=== PATIENT | female | born 1995 ===

== ENCOUNTER 2017-12-03 10:22 | Emergency (ER) | payer BC ==
[2017-12-03 10:34] VITALS: BP 105/64
--- NOTE | 2017-12-03 11:13 | UC ---
Shay Meza Julia, scribed for Adolph Wooten MD on 12/03/17 at 1032 . Throat Pain/Nasal Mynor HPI - HPI Summary HPI Summary: A 21 year old F presents to [facility] with a chief complaint of a sore throat for the past five days. Patient reports painful swallowing, body aches, and fever. Denies difficulty swallowing. Throat pain is 4/10 in severity, upon triage. - History of Current Complaint Stated Complaint: SORE THROAT, CHILLS Time Seen by Provider: 12/03/17 10:29 Hx Obtained From: Patient Onset/Duration: Lasting Days Cough: None Associated Signs & Symptoms: Positive: Fever, Other - body aches, sore throat, pain with swallowing - Allergies/Home Medications Allergies/Adverse Reactions: Allergies Allergy/AdvReac Type Severity Reaction Status Date / Time No Known Allergies Allergy Verified 12/03/17 10:31 PMH/Surg Hx/FS Hx/Imm Hx Previously Healthy: Yes - Denies PMHx - Family History Known Family History: Negative: Respiratory Disease - Social History Substance Use Type: None Smoking Status (MU): Never Smoked Tobacco Review of Systems Constitutional: Fever, Other - body aches ENT: Sore Throat - pain with swallowing All Other Systems Reviewed And Are Negative: Yes Physical Exam - Summary Physical Exam Summary: VITAL SIGNS: Reviewed. GENERAL: Patient is a well-developed and nourished femalewho is lying comfortable in the stretcher. Patient is not in any acute respiratory distress. HEAD AND FACE: Normocephalic EYES: PERRLA, EOMI x 2. EARS: Hearing grossly intact. MOUTH: Oropharynx within normal limits. Pharyngeal erythema. NECK: Supple, trachea is midline, no adenopathy, no JVD, no carotid bruit Lymphadenopathy of the anterior aspect of the neck. .CHEST: Symmetric, no tenderness at palpation LUNGS: Clear to auscultation bilaterally. No wheezing or crackles. CVS: Regular rate and rhythm, S1 and S2 present, no murmurs or gallops appreciated. ABDOMEN: Soft, non-tender. Bowel sounds are normal. No abdominal abnormal pulsations. EXTREMITIES: Full ROM in all major joints, no edema, no cyanosis or clubbing. NEURO: Alert and oriented x 3. No acute neurological deficits. Speech is normal and follows commands. SKIN: Dry and warm Triage Information Reviewed: Yes Vital Signs: Initial Vital Signs Temp 98.6 F 12/03/17 10:30 Pulse 87 12/03/17 10:30 Resp 18 12/03/17 10:30 BP 105/64 12/03/17 10:30 Pulse Ox 99 12/03/17 10:30 Vital Signs Reviewed: Yes Throat Pain/Nasal Course/Dx - Course Course Of Treatment: Patient has a positive a prescription tests therefore the patient will be given a prescription for amoxicillin. Patient will follow with her private care physician in the next couple days. - Differential Dx/Diagnosis Provider Diagnoses: Strep pharyngitis Discharge - Sign-Out/Discharge Documenting (check all that apply): Discharge/Admit/Transfer - Discharge Plan Condition: Stable Disposition: HOME Prescriptions: Amoxicillin/Clavulanate TAB* [Augmentin TAB 875*] 875 mg PO BID #20 tab Patient Education Materials: Strep Throat (ED) Referrals: [facility] [place] [facility] [Outside] No Primary Care Phys,NOPCP [Primary Care Provider] - Additional Instructions: Take medications as instructed Increase your fluid intake Return to the if symptoms worsen - Billing Disposition and Condition Condition: STABLE Disposition: Home The documentation as recorded by the [place] Julia accurately reflects the service I personally performed and the decisions made by , Adolph Wooten MD.
== END 2017-12-03 10:56 | disposition home or self-care (01) ==
LOC: UCEAST 10:22
DX: J02.0 Streptococcal pharyngitis (principal)
CPT/HCPCS: 87651; 99202; G0463